=== PATIENT | male | born 1975 | race American Indian/Alaskan Native ===

== ENCOUNTER 2017-09-18 12:51 | Emergency (ER) | payer SELFPAY ==
[2017-09-18 13:04] VITALS: BP 143/96
--- NOTE | 2017-09-18 17:00 | XRay Report ---
FINAL REPORT EXAM: XR CHEST ROUTINE 2V HISTORY: CP TECHNIQUE: 2 view examination of the chest PRIORS: None FINDINGS: Atherosclerotic change is present in the thoracic aorta. Cardiac silhouette size is normal without vascular congestion. The regional skeleton is without acute pathology. There is no pulmonary consolidation, pleural effusion, or pneumothorax. IMPRESSION: No evidence of acute cardiopulmonary disease
--- NOTE | 2017-09-18 17:17 | Emergency Department Report ---
ED Chest Pain HPI - General Chief Complaint: Chest Pain Stated Complaint: C/P Time Seen by Provider: 09/18/17 15:55 Source: patient Mode of arrival: Ambulatory Limitations: No Limitations - History of Present Illness Initial Comments: Patient is a 41-year-old black male past history of cocaine abuse who is presenting with several months worth of chest pain. Patient states he sometimes gets a sharp chest pain that lasted for several seconds and then dissipates. Patient states this can be at rest and also with exertion. Patient states he is very active work and often times feels fine there. Patient states he has a chronic cough as well with clear white mucus. He is a smoker. Patient denies any nausea vomiting diarrhea shortness of breath at this time. - Related Data Previous Rx's Medication Instructions Recorded Last Taken Type ALBUTEROL Inhaler [ProAir HFA 2 puff IH QID PRN #1 inhalation 09/18/17 Unknown Rx Inhaler] Fluticasone (Nf) [Flovent 220 2 puff IH DAILY #1 inhalation 09/18/17 Unknown Rx MCG/PUFF HFA] Ibuprofen [Motrin] 600 mg PO Q8H PRN #20 tablet 09/18/17 Unknown Rx Heart Score - HEART Score History: Slightly suspicious EKG: Normal Age: < 45 Risk factors: No known risk factors Troponin: < normal limit HEART Score: 0 ED Review of Systems ROS: Stated complaint: C/P Other details as noted in HPI Comment: All other systems reviewed and negative ED Past Medical Hx - Social History Smoking Status: Current Some Day Smoker Substance Use Type: Alcohol, Cocaine, Other - Medications Home Medications: Home Medications Medication Instructions Recorded Confirmed Last Taken Type ALBUTEROL Inhaler [ProAir HFA 2 puff IH QID PRN #1 inhalation 09/18/17 Unknown Rx Inhaler] Fluticasone (Nf) [Flovent 220 2 puff IH DAILY #1 inhalation 09/18/17 Unknown Rx MCG/PUFF HFA] Ibuprofen [Motrin] 600 mg PO Q8H PRN #20 tablet 09/18/17 Unknown Rx ED Physical Exam - General Limitations: No Limitations General appearance: alert, in no apparent distress - Head Head exam: Present: atraumatic, normocephalic - Eye Eye exam: Present: normal appearance - ENT ENT exam: Present: mucous membranes moist - Neck Neck exam: Present: normal inspection - Respiratory Respiratory exam: Present: normal lung sounds bilaterally. Absent: respiratory distress, wheezes, rales, rhonchi - Cardiovascular Cardiovascular Exam: Present: regular rate, normal rhythm. Absent: systolic murmur, diastolic murmur, rubs, gallop - GI/Abdominal GI/Abdominal exam: Present: soft, normal bowel sounds. Absent: distended, tenderness, guarding, rebound - Rectal Rectal exam: Present: deferred - Extremities Exam Extremities exam: Present: normal inspection - Back Exam Back exam: Present: normal inspection - Neurological Exam Neurological exam: Present: alert, oriented X3 - Psychiatric Psychiatric exam: Present: normal affect, normal mood - Skin Skin exam: Present: warm, dry, intact, normal color. Absent: rash ED Course Vital Signs 09/18/17 12:59 Temperature 98.7 F Pulse Rate 80 Respiratory 18 Rate Blood Pressure 143/96 O2 Sat by Pulse 99 Oximetry ED Medical Decision Making - EKG Data -: EKG Interpreted by Pr - EKG Data Interpretation: other (EKG shows sinus rhythm rate of 77 normal axis normal intervals and no ST segment elevations or depressions there was some J-point notching in the lateral leads consistent with early repolarization.) - Radiology Data Radiology results: report reviewed (chest x-ray shows no acute process) - Medical Decision Making Patient is a 41-year-old black male past medical history of cocaine abuse who has some chronic chest discomfort. Patient has a chronic cough cigars smoking as well. Patient was diagnosed with a chronic bronchitis because of his cocaine abuse he will also be referred to cardiology for further workup. Patient is not having any signs or symptoms of acute coronary syndrome Critical care attestation.: If time is entered above; I have spent that time in minutes in the direct care of this critically ill patient, excluding procedure time. ED Disposition Clinical Impression: Atypical chest pain, Cocaine abuse, Chronic bronchitis Disposition: [id number] TO HOME OR SELFCARE Is pt being admited?: No Does the pt Need Aspirin: No Condition: Stable Instructions: Chest Pain (ED), Chronic Bronchitis (ED) Prescriptions: ALBUTEROL Inhaler [ProAir HFA Inhaler] 2 puff IH QID PRN #1 inhalation PRN Reason: Shortness Of Breath Fluticasone (Nf) [Flovent 220 MCG/PUFF HFA] 2 puff IH DAILY #1 inhalation Ibuprofen [Motrin] 600 mg PO Q8H PRN #20 tablet PRN Reason: Pain Referrals: PRIMARY CARE, [Primary Care Provider] - 3-5 Days
== END 2017-09-18 17:37 | disposition home or self-care (01) ==
LOC: ED 12:51
DX: J42 Unspecified chronic bronchitis (principal); F14.10 Cocaine abuse, uncomplicated; F17.200 Nicotine dependence, unspecified, uncomplicated
CPT/HCPCS: 71046; 99283